=== PATIENT | female | born 1995 | race Caucasian/White ===

== ENCOUNTER 2017-07-14 19:36 | Emergency (ER) | payer SELFPAY ==
[~2017-07-14] VITALS: Ht 157.5 cm; Wt 161.3 kg
[2017-07-14 22:05] LABS: HEMATOCRIT 41.8 % (36.0-46.0); HEMOGLOBIN 13.8 G/DL (11.9-15.5); MCH 27.3 PG (29.0-34.0); MCV 82.8 FL (83-99); PLATELET COUNT 308 K/uL (156-360); RBC DIS.WIDTH-CV 13.5 % (11.8-14.6); RBC DIS.WIDTH-SD 40.9 % (39-53); RED BLOOD COUNT 5.05 M/uL (3.80-5.20)
[2017-07-14 22:13] LABS: CHLORIDE 107 mEq/L (99-109); POTASSIUM 4.4 mEq/L (3.7-5.4); SODIUM 142 mEq/L (136-147)
[2017-07-14 22:15] LABS: GLUCOSE 99 mg/dL (70-99)
[2017-07-14 22:19] LABS: CREATININE 0.7 mg/dL (0.6-1.3); GFR ESTIMATE (CALCULATED) > 59 mL/min/
[2017-07-14 22:20] LABS: UREA NITROGEN (BUN) 14 mg/dL (9-23)
[2017-07-14] MEDS ORDERED: KEFLEX500 MG PO (22:32)
[2017-07-14] MEDS ORDERED: BACTRIM,SEPT1 TABLET PO (22:32)
[2017-07-14] MEDS ORDERED: DIFLUCAN150 MG PO (22:38)
[2017-07-14 22:54] VITALS: BP 129/86
== END 2017-07-14 23:00 | disposition home or self-care (01) ==
LOC: EME 19:36
PROVIDERS: Physician Assistant
DX: L03.012 Cellulitis of left finger (principal)
CPT/HCPCS: 73130; 80048; 85027; 99281; 99284